=== PATIENT | female | born 1980 | race Hispanic/Latino ===

== ENCOUNTER 2017-03-04 00:21 | Emergency (ER) | payer SELFPAY ==
[2017-03-04 00:50] LABS: #Basophils 0.1 thou/uL (0.0-0.2); #Eosinphils 0.3 thou/uL (0.0-0.7); #Lymphocytes 2.3 thou/uL (1.20-3.40); #Monocytes 0.7 thou/uL (0.11-0.59); #Neutrophils 6.6 thou/uL (1.40-6.50); %Basophils 0.7 % (0.0-1.0); %Eosinophils 2.8 % (0.0-10.0); %Lymphocytes 22.8 % (21.0-51.0); %Monocytes 6.8 % (0.0-10.0); %Neutrophils 66.9 % (42.0-75.0); Hemoglobin 12.4 g/dL (12.0-16.0); Mean Corpuscular HGB CONC 32.3 g/dL (32.0-36.0); Mean Corpuscular Volume 83.5 fl (81.0-99.0); Mean Platelet Volume 8.4 fL (7.4-10.4); Platelet Count 349 thou/uL (130-400); RBC Distribution Width 14.5 % (11.5-14.5); Red Blood Cell (RBC) Count 4.61 mill/uL (4.20-5.40); White Blood Cell (WBC) Count 9.9 thou/uL (4.8-10.8)
[2017-03-04 01:11] LABS: ALT (SGPT) 24 U/L (8-55); AST (SGOT) 17 U/L (5-34); Albumin 4.1 g/dL (3.5-5.0); Alkaline Phosphatase 93 U/L (40-150); Anion Gap 10 mmol/L (10-20); BUN (Urea Nitrogen) 11 mg/dL (7.0-18.7); Bilirubin, Total 0.2 mg/dL (0.2-1.2); CK (CPK) 61 U/L (29-168); Calc. Creatinine Clearance 0 mL/min (70-130); Calcium 9.7 mg/dL (7.8-10.44); Carbon Dioxide 27 mmol/L (22-29); Chloride 105 mmol/L (98-107); Estimated GFR-MDRD 89; Globulin 3.2 g/dL (2.4-3.5); Glucose 110 mg/dL (70-105); Potassium 3.6 mmol/L (3.5-5.1); Protein, Total 7.3 g/dL (6.0-8.3); Sodium 138 mmol/L (136-145)
[2017-03-04 01:15] LABS: CKMB 0.6 ng/mL (0-6.6); Troponin I Less than 0.010 ng/mL (< 0.028)
--- NOTE | 2017-03-04 08:32 | RAD ---
TWO VIEW CHEST SERIES: INDICATION: Chest pain. FINDINGS: Lungs are clear. Cardiac silhouette is within normal limits of size. No effusion or discrete pneumo thorax. There is probable chronic moderate wedge compression deformity of the low thoracic spine pro ducing kyphosis. IMPRESSION: 1. No consolidation. 2. Moderate wedge compression deformity of low thoracic spine resulting in focal kyphosis. Recommen d clinical correlation. This finding does appear remote, correlation with prior imaging would be hel pful. POS: [facility]
== END 2017-03-04 01:48 | disposition left against medical advice (07) ==
LOC: ERS 00:21
DX: Z53.21 Procedure and treatment not carried out due to patient leaving prior to being seen by health care provider (principal)
CPT/HCPCS: 36415; 71046; 80053; 82553; 83880; 84484; 85025; 93005

== ENCOUNTER 2017-09-18 00:46 | Day surgery (SDC) | payer OTHER ==
[2017-09-18 01:24] VITALS: BMI 33.0
--- NOTE | 2017-09-18 01:37 | PDOC.LDHP ---
Labor and Delivery H&P Chief complaint: other (Pelvic pain at 21 weeks) HPI: Patient of Dr Aldana Location: L&D Triage Time: 0135 Reason for eval: groin/pelvic pain and pressure HPI: 37 yo at 21 weeks with EDC 01/27/18 with groin pain that goes to back "both sides", no DU sxs, no fevers, no trauma, no LOF, no VB. They "come and go ". review of Systems: Complete ROS performed and as per HPI Current gestational age (weeks): 21 Due date: 01/27/18 Dating criteria: last menstrual period Grav: 6 Para: 5 OB History Details: at term x5 Current complications: none Abnormal US findings: No Current medications: pre-colin vitamins Previous surgical history: other (Umbilical hernia) Allergies/Adverse Reactions: Allergies Allergy/AdvReac Type Severity Reaction Status Date / Time bupropion [From Wellbutrin] Allergy Rash Verified 09/18/17 01:20 Social history: none - Physical Exam Vital signs reviewed and normal: yes (BP 121/76 72 16 98.6) General: NAD Heart: RRR Lungs: CTAB Abdomen: gravid Extremeties: no edema [place] contractions every: FHTS by doppler 140s, no palpable contractions - Assessment 21 weeks, grandmultip with pelvic pressure and pain NOS - Plan Plan: observation in L&D (I have ordered transvaginal cervical length (or transperineal if able); I have also ordered a cath UA to r/o UTI; I have ordered bilateral renal sono to r/o atypical renal colic. I suspect more musculoskeletal/round ligament pain at this time.)
--- NOTE | 2017-09-18 01:58 | PDOC.EVN ---
Event Note - Event Note Event Note: @0158: Called by RN doing cath UA: white dsc noted per vagina...suspected BV. I asked the patient if recent sex has occurred, she states it was more than 1 week ago. I will order VP3 although results will not be back tonight. I told her to follow up the results with Dr Aldana.I wrote VP3 on a paer for her to remember. Sonos pending, labs pending
[2017-09-18 02:05] LABS: Bilirubin Negative (Negative); Blood, Urine Negative (Negative); Clarity CLEAR (Clear); Glucose, Urine (Dipstick) Negative (Negative); Leukocyte Negative (Negative); Nitrite Negative (Negative); Protein, Urine (Dipstick) Negative (Neg-Trace); Specific Gravity, Urine 1.005 (1.002-1.036); Urobilinogen 0.2 mg/dL (0.2-1.0); pH, Urine 6.5 (5.0-9.0)
--- NOTE | 2017-09-18 03:35 | PDOC.EVN ---
Event Note - Event Note Event Note: CX length and renal sono normal with bladder jets, UA negative. OK for discahrge from L&D
--- NOTE | 2017-09-18 10:03 | ULT ---
PRELIMINARY REPORT/[facility]/EMERGENTY AFTER-HOURS PROCEDURE US Retroperitoneal Complete EXAM DATE/TIME: 09/18/2017 2:44 AM CLINICAL HISTORY: 37 years old, female; Pain; Other: Lower abd pain; TECHNIQUE: Real-time ultrasound of the retroperitoneum (complete) with image documentation. COMPARISON: No relevant prior studies available. FINDINGS: Aorta: Not evaluated. Common iliac arteries: Not evaluated. Inferior vena cava: Not evaluated. Right kidney: Right kidney measures up to 4.5 x 5.8 x 11.4 cm. No stones. No hydronephrosis. Left kidney: Left kidney measures up to 5.3 x 5.6 x 12.3 cm. No stones. No hydronephrosis. Bladder: Bladder is moderately fluid filled and appears normal. Bilateral ureteral jets seen. IMPRESSION: Normal appearing bilateral kidneys and bladder. No evidence of obstructive uropathy or obstructive ne phropathy. Thank you for allowing us to participate in the care of your patient. Dictated and Authenticated by: Edinson Rodriguez MD 09/18/2017 4:14 AM Central Time ([place] & [place]) FINAL REPORT ULTRASOUND RENAL BILATERAL: HISTORY: Renal colic; 21 weeks . Abdominal pain. COMPARISON: None. TECHNIQUE: Real-time, kennedy scale, and color evaluation of the kidneys and urinary bladder was performed. FINDINGS: Findings and impression are concordant with the preliminary report. POS: [place]
--- NOTE | 2017-09-18 10:03 | ULT ---
PRELIMINARY REPORT/[facility]/EMERGENTY AFTER-HOURS PROCEDURE After First Trimester, Transabdominal EXAM DATE/TIME: 09/18/2017 2:20 AM CLINICAL HISTORY: 37 years old, female; Pain; complicated by abdominal or pelvic pain; Lower; Second trimeste r; Gestational age or lmp: 21wks; TECHNIQUE: Real-time transabdominal obstetrical ultrasound of the maternal pelvis and a second or third trimeste r with image documentation. COMPARISON: No relevant prior studies available. FINDINGS: Fetus: Single Heart rate: 149 bpm Presentation: Breech Placenta: Fundal. No abruption. Amniotic fluid: Normal volume. Anatomy: Visualized anatomy is normal. EFW: 402 grams BPD: 4.9 cm HC: 19 cm AC: 16.5 cm FL: 3.4 cm MATERNAL: Uterus: Unremarkable. No myometrial mass. Cervix: 4.8 cm as visualized. Closed. Free fluid: No free fluid. IMPRESSION: 1. Single viable intrauterine with EGA 21 weeks, 1 days by current US. 2. No acute findings. Thank you for allowing us to participate in the care of your patient. Dictated and Authenticated by: Edinson Rodriguez MD 09/18/2017 4:10 AM Central Time ([place] & [place]) FINAL REPORT ULTRASOUND OB LIMITED: HISTORY: Pelvic pain, 21 weeks . Evaluate cervical length. COMPARISON: None. FINDINGS: Real-time, kennedy scale, color Doppler, and spectral analysis of the gravid uterus was performed. Findings and impression are concordant with the preliminary report. POS: [facility]
== END 2017-09-18 03:54 | disposition home or self-care (01) ==
LOC: L&D/OP 00:46
PROVIDERS: ATTEND Family Medicine
DX: O99.89 Other specified diseases and conditions complicating pregnancy, childbirth and the puerperium (principal); R10.2 Pelvic and perineal pain; Z88.8 Allergy status to other drugs, medicaments and biological substances; Z3A.21 21 weeks gestation of pregnancy
CPT/HCPCS: 51701; 76770; 76815; 81003; 87480; 87510; 87660; 99283

== ENCOUNTER 2018-01-19 17:37 | Day surgery (SDC) | payer OTHER ==
[2018-01-19 18:11] VITALS: BMI 35.9
--- NOTE | 2018-01-19 18:23 | PDOC.LDHP ---
Labor and Delivery H&P HPI: Patient of Dr Aldana Location: Triage Time: 1814 HPI: 37 yo at 38 weeks 6 days, here for possible contractions. No VB, no LOF, good FM. States they have been present for several hours but irregular. No recent trauma, no MENDOZA, nor visual changes. Review of Systsems: complete ROS performed. Positive only for recent URI for which she has been taking a ZPACK Current gestational age (weeks): 38 (6 days) Due date: 01/27/18 Dating criteria: last menstrual period Grav: 7 Para: 5 OB History Details: All SVDs Current complications: none Abnormal US findings: No Current medications: pre- vitamins Previous surgical history: cholecystectomy, other (umbilical hernia repair) Allergies/Adverse Reactions: Allergies Allergy/AdvReac Type Severity Reaction Status Date / Time bupropion [From Wellbutrin] Allergy Rash Verified 09/18/17 01:20 Social history: none - Physical Exam Vital signs reviewed and normal: yes (BP 128/75, afebrile) General: NAD Heart: RRR Lungs: CTAB Abdomen: gravid Extremeties: no edema FHT: category 1 [place] contractions every: rare, some irritability - Vaginal Exam cm dilated: 1 (to 2) Effacement: 25% Station: -1 - Assessment AMA Grandmultip at 38 weeks 6 days. Possible discomforts of as not in labor currently based on clinical exam and irregular contractions. Has elective induction on Monday with MD Jovan - Plan Plan: observation in L&D (Strip reactive; pain meds prn; will likely send home with follow up Monday for scheduled induction)
--- NOTE | 2018-01-19 20:18 | PDOC.EVN ---
Event Note - Event Note Event Note: At 2015: cervix unchanged at 1/thick/high. Due to patient discomfort with contractions, we will obs one more hour and offer stadol/phenergan for therapeutic rest
[2018-01-19] MEDS ORDERED: Butorphanol Tartrate 1 MG/ML VIAL IM SCH (20:30)
[2018-01-19] MEDS ORDERED: Promethazine HCl 25 MG/ML VIAL IM SCH (20:30)
--- NOTE | 2018-01-19 21:35 | PDOC.EVN ---
Event Note - Event Note Event Note: Patient was sent home as no cervical change in 2 hours
== END 2018-01-19 21:25 | disposition home or self-care (01) ==
LOC: L&D/OP 17:37
PROVIDERS: ATTEND Family Medicine
DX: O47.1 False labor at or after 37 completed weeks of gestation (principal); O09.43 Supervision of pregnancy with grand multiparity, third trimester; O09.523 Supervision of elderly multigravida, third trimester; Z3A.38 38 weeks gestation of pregnancy; Z79.899 Other long term (current) drug therapy; Z88.8 Allergy status to other drugs, medicaments and biological substances
CPT/HCPCS: 96372; 99282; J0595; J2550

== ENCOUNTER 2018-01-22 05:46 | Inpatient (IN) | payer OTHER ==
[2018-01-22] MEDS: Lactated Ringer's 1,000 ML IV SCH ×3 (06:34→15:26)
[2018-01-22] MEDS ORDERED: Promethazine HCl 25 MG/ML VIAL IM PRN ×2 (06:46→10:22)
[2018-01-22] MEDS ORDERED: Acetaminophen 500 MG TAB PO PRN (06:46)
[2018-01-22] MEDS ORDERED: Butorphanol Tartrate 1 MG/ML VIAL SLOW IVP PRN (06:46)
[2018-01-22] MEDS ORDERED: Ondansetron PF 4 MG/2 ML Vial IVP PRN ×2 (06:46→10:22)
[2018-01-22 06:52] LABS: Mean Corpuscular HGB CONC 33.3 g/dL (32.0-36.0); Mean Corpuscular Hemoglobin 27.8 pg (27.0-31.0); Mean Corpuscular Volume 83.4 fL (78.0-98.0); Mean Platelet Volume 8.9 fL (7.4-10.4); Platelet Count 285 thou/uL (130-400); RBC Distribution Width 14.9 % (11.5-14.5); Red Blood Cell (RBC) Count 4.34 mill/uL (4.20-5.40); White Blood Cell (WBC) Count 9.4 thou/uL (4.8-10.8)
[2018-01-22 06:53] VITALS: BMI 33.1
[2018-01-22] MEDS ORDERED: Carboprost 250 MCG/ML AMP IM PRN (07:00)
[2018-01-22] MEDS ORDERED: Ibuprofen 800 MG TAB PO PRN (07:00)
[2018-01-22] MEDS ORDERED: NS / Oxytocin 40 units/1000ml 1,000 ML IV SCH (07:00)
[2018-01-22] MEDS ORDERED: NS w/ Oxytocin 10 units 500 ML IV SCH ×2 (07:00)
[2018-01-22] MEDS ORDERED: Misoprostol 200 MCG TAB RC PRN (07:00)
[2018-01-22] MEDS ORDERED: Lidocaine 1% (PF) 30 ML VIAL SC PRN (07:00)
[2018-01-22] MEDS ORDERED: Methylergonovine 0.2 MG/ML VIAL IM PRN (07:00)
[2018-01-22] MEDS ORDERED: HYDROcodone/Acetaminophen 5/325 mg Tablet PO PRN ×2 (07:00)
[2018-01-22 07:31] LABS: HBSAg Index 0.21 S/CO (0-0.99); Hep B Surf Ag Non-Reactive S/CO (NonReactive); Syphilis Antibody Nonreactive (Nonreactive); Syphilis Antibody Index 0.12 S/CO (<1.00 Non-Reactive)
[2018-01-22] MEDS ORDERED: Fentanyl 4 mcg/Bup 0.1% Cadd 100 ML ONE ×3 (09:38→22:23)
[2018-01-22] MEDS ORDERED: Naloxone HCl 0.4 mg/ml Vial IVP PRN ×2 (10:22)
[2018-01-22] MEDS ORDERED: Eucerin (Mineral Oil/Petrolatum,White) 30 gm Jar TOP PRN (10:22)
[2018-01-22] MEDS ORDERED: ePHEDrine/0.9% NaCl/PF SYRINGE 50 mg/10 ml SLOW IVP PRN (10:22)
[2018-01-22] MEDS ORDERED: Acetaminophen 325 MG TAB PO PRN (10:22)
[2018-01-22] MEDS ORDERED: Lactated Ringer's 500 ML IV PRN (10:22)
[2018-01-22] MEDS ORDERED: diphenhydrAMINE 50 MG/ML VIAL IVP PRN (10:22)
[2018-01-22] MEDS ORDERED: Communication Order-Pharmacy FS SCH (10:30)
[2018-01-22] MEDS: Fentanyl 4 mcg/Bupivacaine 0.1% Cassette 100 ML EPIDURAL SCH ×2 (16:29→22:25)
--- NOTE | 2018-01-22 23:27 | PDOC.EVN ---
Event Note - Event Note Event Note: At bedside for recheck. Making very slow progress all afternoon, baby was OP, recently in knee chest and baby now seems to have rotated. SVE with thick cervical lip right anterior - reduced, now /+1. Continue [id number] management for now. Continue pitocin. FWB Category II.
[2018-01-23] MEDS ORDERED: CEFAZOLIN 2 GM/50 ML BAG ONE (03:51)
--- NOTE | 2018-01-23 03:59 | PDOC.EVN ---
Event Note - Event Note Event Note: At bedside after 3 hours of adequate contractions still 9cm and no more descent into the pelvis. D/W Dr. Castillo and patient and we all agree C/S is the most appropriate choice. risks and benefits discussed with pt and . Will proceed with priamry C/S for arrest of labor and failure to descend.
[2018-01-23] MEDS ORDERED: CEFAZOLIN/Water 2 GM/20 ML SYRINGE SLOW IVP SCH (04:00)
[2018-01-23] MEDS ORDERED: Dexamethasone 4 mg/ml Vial ONE (04:03)
[2018-01-23] MEDS ORDERED: Oxytocin 10 UNITS/ML VIAL ONE (04:03)
[2018-01-23] MEDS ORDERED: Morphine PF 1 MG/ML SYR ONE (04:03)
[2018-01-23] MEDS ORDERED: Ondansetron PF 4 MG/2 ML Vial ONE ×2 (04:03→16:28)
[2018-01-23] MEDS ORDERED: HYDROmorphone 2 MG/ML VIAL SLOW IVP PRN (04:08)
[2018-01-23] MEDS ORDERED: L&D-Morphine 4 MG/ML VIAL SLOW IVP PRN (04:08)
[2018-01-23] MEDS ORDERED: Naloxone HCl 0.4 mg/ml Vial IV PRN (04:08)
[2018-01-23] MEDS ORDERED: Promethazine HCl 25 MG SUPP PR PRN (04:08)
[2018-01-23] MEDS ORDERED: Naloxone HCl 0.4 mg/ml Vial IVP PRN ×2 (04:08)
[2018-01-23] MEDS ORDERED: diphenhydrAMINE 50 MG/ML VIAL IVP PRN (04:08)
[2018-01-23] MEDS ORDERED: Ketorolac Tromethamine 30 MG/ML VIAL IVP PRN (04:08)
[2018-01-23] MEDS ORDERED: Meperidine HCl/PF 25 MG/ML VIAL SLOW IVP PRN (04:08)
[2018-01-23] MEDS ORDERED: Hydrocerin (Eucerin) Cream 120 gm Jar TOP PRN (04:08)
[2018-01-23] MEDS ORDERED: Promethazine HCl 25 MG/ML VIAL IM PRN (04:08)
[2018-01-23] MEDS ORDERED: Ondansetron HCl/PF 4 MG/2 ML Vial IVP PRN (04:08)
[2018-01-23] MEDS ORDERED: Ondansetron PF 4 MG/2 ML Vial IVP PRN (04:08)
[2018-01-23] MEDS ORDERED: Communication Order-Pharmacy FS SCH (04:15)
[2018-01-23] MEDS ORDERED: Ketorolac Tromethamine 30 MG/ML VIAL IVP SCH (04:15)
[2018-01-23] MEDS ORDERED: Bicitra 30 ML UDCUP PO SCH (04:30)
[2018-01-23] MEDS ORDERED: CEFAZOLIN 2 GM/50 ML-DEXTROSE 2 GM in Premix Bag 1 BAG IVPB SCH (04:30)
[2018-01-23] MEDS ORDERED: PHENYLEPHRINE-NS 100 MCG/ML 10 ML SYRINGE ONE ×2 (04:58→16:28)
[2018-01-23] MEDS ORDERED: NS / Oxytocin 40 units/1000ml 1,000 ML IV SCH (05:30)
--- NOTE | 2018-01-23 06:52 | OP ---
DATE OF SURGERY: 01/23/2018 TIME OF SERVICE: Approximately 0430. PREOPERATIVE DIAGNOSIS: Grand multiparous patient at term with failure to progress and failure to de scend at 8-9, 90 and -1 station. POSTOPERATIVE DIAGNOSIS: Grand multiparous patient at term with failure to progress and failure to d escend at 8-9, 90 and -1 station. PROCEDURE PERFORMED: Primary low transverse section without extension. SURGEON: Jose M Castillo M.D. ENDBAND SIZER: Felipe Aldana M.D. ANESTHESIA: Epidural, Coy Braun M.D. MEDICATIONS: Two grams Ancef preincision. DVT PROPHYLAXIS: SCDs. DRAINS: Serna to gravity. OPERATIVE FINDINGS: 1. Vigorous male infant, cephalic presentation, nursery, weight and Apgars pending. 2. Edematous bladder throughout the case poorly draining Serna. 3. Hemostasis with pinkish-tinged urine, which was present prior to section at the end of t he procedure with correct counts. DISPOSITION: To the recovery room in good condition. ESTIMATED BLOOD LOSS: Approximately 1000 mL, QBL pending. DESCRIPTION OF OPERATIVE PROCEDURE: The patient was under management with Dr. Aldana and decision was made to proceed with primary section. She was taken back to the operating room where epidur al was dosed and she was prepped and draped in the usual manner. Pfannenstiel skin incision was made , carried down to the fascia. Midline was incised sharply superolaterally with curved Trejo scissors. Rectus dissected off sharply superiorly and inferiorly, divided in the midline, peritoneum entered bluntly, taking care to avoid trauma to the underlying viscera. The Todd 0 retractor was placed in side. Bladder was noted to be quite distended and edematous. A low transverse hysterotomy was made approximately 1 cm above the level of the vesicouterine peritoneal fold and extended superolaterally with finger fractionization. The 's head was noted to be deep in the pelvis, but not really en gaged into the cervix well, it was elevated to the hysterotomy and the rest of the infant delivered. Cord clamped and cut and handed off to team in attendance. Usual cord blood samples obtain ed. Placenta delivered manually. The uterus was exteriorized. Hysterotomy was noted to be without extension and was closed using a single layer with Monocryl with 2 sutures. Concern was noted for th e patient's grand multiparity for possible uterine atony, but actually good uterine tone was achieved . Small area of bleeding along the left margin and the hysterotomy was rendered hemostatic using fig [id number] of #1 chromic. Suction irrigation was carried out and reinspection of the hysterotomy r evealed to be dry. Counts were correct at this point in time, the rectus was inspected and noted be dry after removing the Todd O retractor. The fascia was reapproximated using running continuous 0 PDS suture x1. Subcutaneous tissue irrigated and rendered hemostatic with Bovie cautery and deep sub cu reapproximated using a 2-0 plain gut. Skin reapproximated using skin janel. The patient taken to recovery room in good condition.
[2018-01-23] MEDS ORDERED: Bisacodyl 10 MG SUPP PR PRN (06:59)
[2018-01-23] MEDS ORDERED: Adacel (T-DAP) 0.5 ML VIAL IM ONE (06:59)
[2018-01-23] MEDS ORDERED: Ibuprofen 800 MG TAB PO SCH ×2 (06:59→07:15)
[2018-01-23] MEDS ORDERED: diphenhydrAMINE 25 MG CAP PO PRN (06:59)
[2018-01-23] MEDS ORDERED: Lanolin Ointment 7 GM TUBE TOP PRN (06:59)
[2018-01-23] MEDS: Lactated Ringer's 1,000 ML IV SCH (09:01)
[2018-01-23] MEDS: Docusate Calcium (SURFAK) 240 MG CAP PO SCH ×2 (10:40→21:54)
[2018-01-23] MEDS ORDERED: Dexamethasone 20 MG/5 ML VIAL ONE (16:28)
[2018-01-23] MEDS: Ibuprofen 800 MG TAB PO SCH ×2 (17:29→23:59)
[2018-01-24] MEDS: HYDROcodone/Acetaminophen 5/325 mg Tablet PO PRN ×3 (04:05→17:38)
[2018-01-24 07:07] LABS: Hemoglobin 8.6 g/dL (12.0-16.0); Mean Corpuscular HGB CONC 33.6 g/dL (32.0-36.0); Mean Corpuscular Hemoglobin 28.6 pg (27.0-31.0); Mean Corpuscular Volume 85.2 fL (78.0-98.0); Mean Platelet Volume 8.7 fL (7.4-10.4); Platelet Count 223 thou/uL (130-400); RBC Distribution Width 14.6 % (11.5-14.5); Red Blood Cell (RBC) Count 2.99 mill/uL (4.20-5.40); White Blood Cell (WBC) Count 16.7 thou/uL (4.8-10.8)
[2018-01-24] MEDS: Docusate Calcium (SURFAK) 240 MG CAP PO SCH ×2 (09:20→21:50)
[2018-01-24] MEDS: Ibuprofen 800 MG TAB PO SCH ×2 (09:20→17:35)
[2018-01-24] MEDS ORDERED: Lidocaine 2% MPF 10 ML AMP (For Epidural Use) ONE (10:35)
[2018-01-24] MEDS ORDERED: Bupivacaine HCl 0.5%/Epinephrine 1:200,000/PF 30 ml Vial ONE (10:35)
[2018-01-24] MEDS: Simethicone Chewable 80 MG TAB PO PRN (11:51)
--- NOTE | 2018-01-24 14:24 | PDOC.PP ---
Post Progress Note Post Day #: 1 Subjective: DOing well post op. Dressing still intact. No shower yet but ambulated to bathroom. . PO intake tolerated: yes Flatus: yes Ambulation: yes Vital Signs (12 hours) Temp Pulse Resp BP Pulse Ox 01/24/18 12:05 97.8 F 71 20 106/56 L 01/24/18 07:56 97.6 F 73 20 101/55 L 98 01/24/18 04:05 97.6 F 67 16 96/53 L Weight Weight 187 lb - Physical Examination General: NAD Cardiovascular: no m/r/g, RRR Respiratory: clear to auscultation bilaterally, non-labored breathing Abdominal: + bowel sounds, lochia, no distention, appropriately TTP Skin: CS incision dry & intact, no rash Result Diagrams: 01/24/18 06:16 Additional Labs: Post Labs Blood Type O POSITIVE 01/22/18 06:32 Hep Bs Antigen Non-Reactive S/CO (NonReactive) 01/22/18 06:32 (1) Status post primary low transverse section Code(s): Z98.891 - HISTORY OF UTERINE SCAR FROM PREVIOUS SURGERY Status: Acute - Assessment/Plan Routine post op care Ambulate Remove dressing Shower D/C 01/25 or 01/26.
[2018-01-25] MEDS: HYDROcodone/Acetaminophen 5/325 mg Tablet PO PRN ×3 (00:36→11:32)
[2018-01-25] MEDS: Ibuprofen 800 MG TAB PO SCH ×2 (01:40→08:29)
[2018-01-25] MEDS: Simethicone Chewable 80 MG TAB PO PRN ×2 (05:10→11:32)
--- NOTE | 2018-01-25 07:11 | PDOC.PP ---
Post Progress Note Post Day #: 2 Subjective: Doing well. Ambulating. Tolerating PO. Bottlefeeding. PO intake tolerated: yes Flatus: yes Ambulation: yes Vital Signs (12 hours) Temp Pulse Resp BP Pulse Ox 01/25/18 00:30 98.4 F 81 20 110/74 99 01/24/18 20:00 97.6 F 86 20 116/70 99 Weight Weight 187 lb - Physical Examination General: NAD Cardiovascular: no m/r/g, RRR Respiratory: clear to auscultation bilaterally, non-labored breathing Abdominal: + bowel sounds, lochia, no distention, appropriately TTP Skin: CS incision dry & intact, no rash Psychiatric: A&Ox3, normal affect Result Diagrams: 01/24/18 06:16 Additional Labs: Post Labs Blood Type O POSITIVE 01/22/18 06:32 Hep Bs Antigen Non-Reactive S/CO (NonReactive) 01/22/18 06:32 (1) Status post primary low transverse section Code(s): Z98.891 - HISTORY OF UTERINE SCAR FROM PREVIOUS SURGERY Status: Acute (2) delivery delivered Code(s): O82 - ENCOUNTER FOR DELIVERY WITHOUT INDICATION Status: Acute - Assessment/Plan Postop day #2 Routine care D/C home
[2018-01-25 08:06] VITALS: BP 111/68; TEMP 98.1
[2018-01-25] MEDS: Docusate Calcium (SURFAK) 240 MG CAP PO SCH (08:30)
== END 2018-01-25 14:00 | disposition home or self-care (01) | DRG 788 ==
LOC: L&D 05:46 → 3SE 01-23 08:34
PROVIDERS: ADMIT Family Medicine; ATTEND Family Medicine
PROC: 10D00Z1 Extraction of Products of Conception, Low, Open Approach (ICD-10-PCS; principal; 2018-01-23)
DX: O64.8XX0 Obstructed labor due to other malposition and malpresentation, not applicable or unspecified (principal); Z37.0 Single live birth; O66.40 Failed trial of labor, unspecified; Z3A.39 39 weeks gestation of pregnancy
CPT/HCPCS: 36415; 51702; 85027; 86780; 86850; 86900; 86901; 87340; C1726; J0670; J1100; J2001; J2274; J2405; J2590

== ENCOUNTER 2018-04-02 19:42 | Emergency (ER) | payer OTHER, SELFPAY ==
[2018-04-02] MEDS ORDERED: Ibuprofen 600 MG TAB ONE (20:46)
== END 2018-04-02 20:50 | disposition home or self-care (01) ==
LOC: SCSER 19:42
DX: N61.0 Mastitis without abscess (principal)
CPT/HCPCS: 99283

== ENCOUNTER 2018-04-05 19:00 | Emergency (ER) | payer SELFPAY ==
[2018-04-05 20:02] LABS: Band 19 % (5-11); Hemoglobin 13.2 g/dL (12.0-16.0); Lymphocytes 8 % (21-51); MDiff Complete? YES; Mean Corpuscular HGB CONC 32.3 g/dL (32.0-36.0); Mean Corpuscular Hemoglobin 26.8 pg (27.0-31.0); Mean Corpuscular Volume 82.8 fL (78.0-98.0); Mean Platelet Volume 8.3 fL (7.4-10.4); Monocytes 6 % (0-10); Neutrophil 67 % (42-75); Platelet Count 415 thou/uL (130-400); Platelet Morphology Comment Appears Increased; RBC Distribution Width 14.2 % (11.5-14.5); Red Blood Cell (RBC) Count 4.95 mill/uL (4.20-5.40)
[2018-04-05 20:07] LABS: Anion Gap 14 mmol/L (10-20); BUN (Urea Nitrogen) 6 mg/dL (7.0-18.7); Calc. Creatinine Clearance 0 mL/min (70-130); Carbon Dioxide 26 mmol/L (22-29); Chloride 102 mmol/L (98-107); Estimated GFR-MDRD 88; Potassium 3.6 mmol/L (3.5-5.1); Sodium 138 mmol/L (136-145)
[2018-04-05 20:08] LABS: ALT (SGPT) 96 U/L (8-55); AST (SGOT) 77 U/L (5-34); Albumin 4.2 g/dL (3.5-5.0); Alkaline Phosphatase 277 U/L (40-150); Bilirubin, Total 0.4 mg/dL (0.2-1.2); Globulin 3.9 g/dL (2.4-3.5); Glucose 117 mg/dL (70-105); Protein, Total 8.1 g/dL (6.0-8.3)
[2018-04-05] MEDS ORDERED: Ketorolac Tromethamine 30 MG/ML VIAL ONE (21:57)
[2018-04-05] MEDS ORDERED: Metoclopramide HCl 10 MG/2 ML VIAL ONE (21:57)
[2018-04-05] MEDS ORDERED: diphenhydrAMINE 50 MG/ML VIAL ONE (21:57)
[2018-04-05 22:28] LABS: CSF Source CSF; Clarity Clear (Clear); Tube # 4
[2018-04-05 22:35] LABS: RBC Count - Manual 0 /cumm (None Seen); WBC/NonHematics Count - Manual 0 /cumm (0-5)
[2018-04-05 22:38] LABS: CSF, Glucose 66 mg/dl (40-70); CSF, Protein 22 mg/dL (15-40)
[2018-04-05 22:56] LABS: Color Of CSF Supernatant COLORLESS (Colorless); Tube # 2; Unspun CSF Color COLORLESS (Colorless)
== END 2018-04-06 00:08 | disposition home or self-care (01) ==
LOC: ERS 19:00
DX: R51 Headache (principal); N61.0 Mastitis without abscess
CPT/HCPCS: 36415; 62270; 80053; 82945; 83605; 84157; 85025; 87070; 87205; 87804; 89051; 96361; 96365; 96366; 96367; 96375; J1200; J1885; J2765; J3370